=== PATIENT | male | born 1955 | race Caucasian/White ===

== ENCOUNTER 2016-10-09 13:20 | Day surgery (SDC) | payer OTHER ==
[2016-10-09] MEDS ORDERED: LR 1,000 ML IV ONE (14:27)
--- NOTE | 2016-10-09 15:41 | PDANEPAE ---
ANE Past Medical History - Cardiovascular History Hx Hypertension: No Hx Arrhythmias: No Hx Chest Pain: No Hx Coronary Artery / Peripheral Vascular Disease: No Hx CHF / Valvular Disease: No Hx Palpitations: No - Pulmonary History Hx COPD: No Hx Asthma/Reactive Airway Disease: Yes Hx Recent Upper Respiratory Infection: No Hx Oxygen in Use at Home: No Hx Sleep Apnea: No Sleep Apnea Screening Result - Last Documented: Negative Pulmonary History Comment: uses 2 inhalers. Coughs clear mucus. - Neurologic History Hx Cerebrovascular Accident: No Hx Seizures: No Hx Dementia: No - Endocrine History Hx Diabetes: No - Liver History Hx Hepatic Disorders: No - Neurological & Psychiatric Hx Hx Neurological and Psychiatric Disorders: Yes Neurological / Psychiatric History Comment: severe pain-low back - Cancer History Hx Cancer: Yes Cancer History Comment: esophageal- tx w/radiation and chemo - Congenital Disorder History Hx Congenital Disorders: No - GI History Hx Gastrointestinal Disorders: Yes Gastrointestinal History Comment: Hx esophageal CA. dyspahgia,GERD, Sore "throat -acid ate hole in palate".uses NTG for GERD pain. achalasia. - Other Health History Other Health History: OA. Power Port -R chest. need for colonoscopy. - Chronic Pain History Chronic Pain: Yes (low back,throat) - Surgical History Prior Surgeries: facial reconstruction age 21's. endoscopy with anesthesia ANE Review of Systems - Exercise capacity METS (RN): 4 METS ANE Patient History - Allergies Allergies/Adverse Reactions: No Known Allergies Allergy (Unverified 09/26/16 12:13) - Home Medications Home Medications: Fentanyl Patch 09/26/16 [Last Taken Unknown] Nitroglycerin 09/26/16 [Last Taken Unknown] PRILOSEC 09/26/16 [Last Taken Unknown] Symbicort 80-4.5 Mcg Inhaler 09/26/16 [Last Taken Unknown] Ventolin Hfa Inhaler 09/26/16 [Last Taken Unknown] Zantac 09/26/16 [Last Taken Unknown] morphINE 09/26/16 [Last Taken Unknown] - NPO status NPO Since - Liquids (Date): 10/09/16 NPO Since - Liquids (Time): 13:00 NPO Since - Solids (Date): 10/08/16 NPO Since - Solids (Time): 08:00 - Smoking Hx Smoking Status: Former smoker ANE Labs/Vital Signs - Vital Signs Blood Pressure: 133/94 Heart Rate: 67 Respiratory Rate: 18 O2 Sat (%): 95 Height: 167.64 cm Weight: 78.471 kg ANE Physical Exam - Airway Neck exam: decreased ROM Mallampati Score: Class 3 Mouth exam: dentures - Pulmonary Pulmonary: no respiratory distress, no rales or rhonchi, clear to auscultation - Cardiovascular Cardiovascular: regular rate and rhythym, no murmur, rub, or gallop - ASA Status ASA Status: II ANE Anesthesia Plan Anesthesia Plan: MAC
[2016-10-09] MEDS ORDERED: PROPOFOL 200 MG/20 ML VIAL ONE ×3 (15:43→16:13)
[2016-10-09] MEDS ORDERED: PROMETHAZINE HCL 25 MG/ML INJ IVP PRN (15:46)
[2016-10-09] MEDS ORDERED: NALOXONE HCL 0.4 MG/ML INJ IVP PRN (15:46)
[2016-10-09] MEDS ORDERED: ONDANSETRON 4 MG/2 ML VIAL IVP PRN (15:46)
[2016-10-09] MEDS ORDERED: LR 500 ML IV PRN (15:46)
[2016-10-09] MEDS ORDERED: fentaNYL 100 MCG/2 ML INJ IVP PRN (15:46)
--- NOTE | 2016-10-09 16:02 | PDGENHP ---
History & Physical Chief Complaint: heartburn History of Present Illness: 61 year old male witha hx of achalasia presents for evaluation of dysphagia to solids as well as hearburn. Also due for surveillance colonoscopy (hx of polyps) Pertinent Past, Social, Family History: PMHx: colonic polyps, COPD (asthma), achalasia Relevant Physical Exam: HEENT: anicteric. CV: RRR +s1s2. Lungs: CTAB Cardiorespiratory Assessment: ASA 2
--- NOTE | 2016-10-09 16:39 | POSTANESTH ---
Post Anesthetic Evaluation Cardiovascular Status: Normal, Stable, Similar to Pre-Op Cond Respiratory Status: Normal, Stable, Similar to Pre-op Cond. Level of Consciousness/Mental Status: Can Participate in Eval, Mildly Sleepy, Arousable Pain Control: Adequate, Prn Tx Ordered Nausea/Vomiting Control: Adequate, Prn Tx Ordered Complications Possibly Related to Anesthesia: None Noted
[2016-10-09 16:41] VITALS: PULSE 72
[2016-10-09] MEDS ORDERED: INDOMETHACIN 50 MG SUPP PR PRN (16:44)
--- NOTE | 2016-10-09 16:44 | POSTOPPROG ---
Post Op Note Date of Operation: 10/09/16 Surgeon: Jagdish Oscar Anesthesia: IV Sedation Pre-op Diagnosis: dysphagia, heartburn, colonic polyps Post-op Diagnosis: polyps, gastritis, gastric polyps Indication: dysphagia, colonic polyps Procedure: Egd with dilation, biopsy, colonsocopy with snare Findings: polyps, gastritis Inf/Abcess present in the surg proc area at time of surgery?: No Specimen(s): as and hf polyps gastritis mid esophagus gastric polyps
[2016-10-09] MEDS ORDERED: NS 500 ML IV SCH (16:45)
[2016-10-09 17:46] VITALS: TEMP 97.9
[2016-10-09 17:54] VITALS: BP 131/83; RESP 16; O2SAT 96
--- NOTE | 2016-10-10 04:35 | GPN ---
[f rep st] PROCEDURE NOTE DATE OF PROCEDURE: 10/09/2016 PROCEDURE: 1. Esophagogastroduodenoscopy with dilation. 2. Biopsy. INDICATIONS: The patient is a 61-year-old male with an ENT cancer, achalasia, who presents with com plaints of increasing dysphagia as well as heartburn. He presents for further evaluation. CONSENT: Risks, benefits, and alternatives of the procedure were discussed in great detail with the patient. Risks of infection, bleeding, perforation, sedation were discussed. All questions answer ed, and informed consent was obtained. MEDICATIONS: Propofol. Please see Anesthesia record for details. ESTIMATED BLOOD LOSS: Insignificant. ESOPHAGOGASTROSCOPY EXAMINATION: An Olympus upper endoscope was introduced via the mouth and advanc ed to the esophagus. The proximal and distal esophagus were visualized. The patient noted to have a tortuous esophagus. There was mild dilation of the esophagus. Biopsies were taken in the midesophagus with eosinophilic esophagitis. At the gastroesophageal junc tion, a 20 mm balloon was utilized for dilation and pulled through the esophagus. The stomach was entered and closely examined, including retroflex views, and angles of cardia and fu ndus. The mucosa in the anterior body was erythematous with patchy Distribution, and biopsies were taken. A moderate-sized hiatal hernia was noted. The duodenal bulb and second portion of the duodenum were normal in appearance. IMPRESSION: 1. Biopsies to rule out eosinophilic esophagitis. 2. Biopsy for gastritis. 3. Empiric dilation performed . 4. Follow up on biopsy results. 5. PPI therapy twice a day. 6. Proceed with colonoscopy. /[id number]/MODL
--- NOTE | 2016-10-10 04:39 | GPN ---
[f rep st] PROCEDURE NOTE DATE OF PROCEDURE: 10/09/2016 PROCEDURE: Colonoscopy with biopsy. INDICATION: The patient is a 61-year-old male, with a personal history of , who presents for surveillance colonoscopy. CONSENT: Risks, benefits, and alternatives of the procedure were discussed in great detail with the patient. Risks of infection, bleeding, perforation, and sedation were discussed. All questions an swered and informed consent was obtained. MEDICATIONS: Propofol. Please see Anesthesiology record for details. ESTIMATED BLOOD LOSS: Insignificant. COLONOSCOPIC EVALUATION: Rectal exam was done. No palpable mass was felt. The scope inserted into the rectum and advanced to the cecum, where the ileocecal valve and appendiceal orifice were seen. A 3 mm polyp was seen in the ascending colon, removed by biopsy forceps. Another 2 mm polyp was se en in the hepatic flexure, removed by biopsy forceps. Scattered diverticula were noted in the sigmoid and descending colon. IMPRESSION: 1. Diverticulosis. 2. Colonic polyps x2. RECOMMENDATIONS: 1. Follow up on biopsy results. 2. Fiber supplementation. 3. Repeat colonoscopy in 5 years. /[id number]/MODL
== END 2016-10-09 17:52 | disposition home or self-care (01) ==
LOC: FSGY 13:20
PROVIDERS: ATTEND Internal Medicine Gastroenterology
PROC: 0DBE8ZX Excision of Large Intestine, Via Natural or Artificial Opening Endoscopic, Diagnostic (ICD-10-PCS; principal; 2016-10-09 14:30)
PROC: 0D748ZZ Dilation of Esophagogastric Junction, Via Natural or Artificial Opening Endoscopic (ICD-10-PCS; principal; 2016-10-09 14:30)
PROC: 0DB68ZX Excision of Stomach, Via Natural or Artificial Opening Endoscopic, Diagnostic (ICD-10-PCS; principal; 2016-10-09 14:30)
PROC: 0DB28ZX Excision of Middle Esophagus, Via Natural or Artificial Opening Endoscopic, Diagnostic (ICD-10-PCS; principal; 2016-10-09 14:30)
DX: K20.9 Esophagitis, unspecified (principal); K29.50 Unspecified chronic gastritis without bleeding; D12.2 Benign neoplasm of ascending colon; D12.3 Benign neoplasm of transverse colon; K57.30 Diverticulosis of large intestine without perforation or abscess without bleeding; J44.9 Chronic obstructive pulmonary disease, unspecified; K21.9 Gastro-esophageal reflux disease without esophagitis; R13.10 Dysphagia, unspecified; Z85.01 Personal history of malignant neoplasm of esophagus
CPT/HCPCS: 43239; 45380; C1726; J1642; J2704